=== PATIENT | male | born 1990 | race Caucasian/White ===

== ENCOUNTER 2016-10-14 05:39 | Emergency (ER) | payer OTHER ==
[~2016-10-14] VITALS: Ht 188 cm; Wt 130.4 kg
[2016-10-14 06:14] LABS: HEMATOCRIT 46.6 % (38.0-50.0); MCH 30.8 PG (29.0-34.0); MCHC 33.7 G/DL (30.0-36.0); MCV 91.4 FL (86-99); MEAN PLAT.VOLUME 9.9 uM^3 (9.0-12.4); PLATELET COUNT 185 K/uL (156-360); RBC DIS.WIDTH-CV 12.8 % (11.8-14.6); RBC DIS.WIDTH-SD 42.8 % (39-53); WHITE BLOOD COUNT 3.7 K/uL (4.1-10.2)
[2016-10-14 06:23] LABS: CHLORIDE 105 mEq/L (99-109); POTASSIUM 4.5 mEq/L (3.7-5.4); SODIUM 139 mEq/L (136-147)
[2016-10-14 06:26] LABS: GLUCOSE 113 mg/dL (70-99)
[2016-10-14 06:27] LABS: ANION GAP 10 MEQ/L (2-14)
[2016-10-14 06:28] LABS: TOTAL BILIRUBIN 0.5 mg/dL (0.0-1.0)
[2016-10-14 06:29] LABS: ALKALINE PHOSPHATASE 92 IU/L (3-129); GFR ESTIMATE (CALCULATED) > 59 mL/min/
[2016-10-14 06:30] LABS: UREA NITROGEN (BUN) 10 mg/dL (9-23)
[2016-10-14 06:33] LABS: LIPASE 21 U/L (1.0-51.0)
[2016-10-14] MEDS ORDERED: ZOFRAN ODT4 MG PO (07:11)
[2016-10-14 08:21] VITALS: BP 136/78
== END 2016-10-14 08:26 | disposition home or self-care (01) ==
LOC: EME 05:39
DX: R10.9 Unspecified abdominal pain (principal); R11.2 Nausea with vomiting, unspecified; R19.7 Diarrhea, unspecified
CPT/HCPCS: 80053; 81003; 83690; 85027; 99281; 99284; J7030